=== PATIENT | male | born 1990 | race Two or more races ===

== ENCOUNTER 2023-10-29 11:55 | Emergency (ER) | payer OTHER ==
[~2023-10-29] VITALS: Ht 180.3 cm; Wt 73.0 kg
[2023-10-29 12:31] VITALS: TEMP 97.5
[2023-10-29 12:40] VITALS: BP 108/75; PULSE 75; RESP 18; O2SAT 100
== END 2023-10-29 13:25 | disposition home or self-care (01) ==
LOC: EMS 11:55
DX: F41.0 Panic disorder [episodic paroxysmal anxiety] (principal)
CPT/HCPCS: 99283